=== PATIENT | female | born 1980 | race Hispanic/Latino ===

== ENCOUNTER 2020-01-25 21:10 | Emergency (ER) | payer BC ==
[~2020-01-25] VITALS: Ht 162.6 cm; Wt 63.5 kg
--- OUTSIDE RECORDS SUMMARY | 2020-01-25 21:12 | XMS REPORT ---
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 Problem Name Problem Code Onset Date Status Entry Date Provider Comment Standard Description Annotate Irregular menses 626.4 Active Sammy Dodge MD Irregular menstrual cycle Malaise & fatigue 780.79 Active Sammy Dodge MD Other malaise and fatigue Vaginal dryness 625.8 Active Sammy Dodge MD Other specified symptoms associated with female genital organs Weight gain 783.1 Active Sammy Dodge MD Abnormal weight gain IUD insertion V25.11 Active Sammy Dodge MD Encounter for insertion of intrauterine contraceptive device Cervix, screening for malignant neoplasm V76.2 Active Sammy Dodge MD Screening for malignant neoplasms of the cervix Contraceptive management V25.09 Active Sammy garza MD Encounter for other general counseling and advice on contraceptive management 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 V72.3 Active Sammy Dodge MD Special investigations and examinations - Gynecological examination Medication List Medication Instructions Start Date Stop Date Generic Name NDC Status Provider Patient Instruction SPRINTEC 28 0.25-35 MG-MCG ORAL TABLET 1 pill daily po SPRINTEC 28 0.25-35 MG-MCG ORAL TABLET 312642 NORGESTIMATE-ETH ESTR ADIOL Inactive SPRINTEC 28 0.25-35 MG-MCG ORAL TABLET 1 pill daily po NORGESTIMATE-ETH ESTRADIOL [id number] No Longer Active Sammy Dodge MD Active Vital Signs Date Name Value Unit Range Description blood pressure, diastolic 82 mm[Hg] BP cosby blood pressure, systolic 129 mm[Hg] BP sys height E&M 63 [in_us] Bdy height pulse rate E&M 93 /min Heart rate respiratory rate E&M 16 /min Resp rate temperature E&M 98.6 [degF] Body temp erature weight E&M 151.20 [lb_av] Weight Measure d blood pressure, diastolic 85 mm[Hg] BP cosby blood pressure, systolic 132 mm[Hg] BP sys height E&M 63 [in_us] Bdy height pulse rate E&M 75 /min Heart rate respiratory rate E&M 22 /min Resp rate temperature E&M 98.5 [degF] Body temp erature weight E&M 151 [lb_av] Weight Measure d Diagnostic Results Date Name Value Unit Range Description Lab Report: CBC With Differential/Platel et, Estradiol, TSH Rfx on Abnorm ... - Hematology hematocrit, blood 38.3 % 34.0-46.6 Lab Report: CBC With Differential/Platel et, Estradiol, TSH Rfx on Abnorm ... - Chemistry Absolute Neutrophils 3.5 X10E3/UL 10*3/uL 1.4-7.0 estradiol, serum 54.6 pg/mL thyroid stimulating hormone, serum 1.300 u[iU]/mL 0 .450-4.500 Lab Report: CBC With Differential/Platel et, Estradiol, TSH Rfx on Abnorm ... - Hematology lymphocytes as percent of blood leukocytes 26 % Not Estab. neutrophils as percent of blood leukocytes 67 % Not Estab. mean corpuscular volume, RBC 86 fL 79-97 basophils as percent of blood leukocytes 0 % Not Estab. basophil count, absolute 0.0 x10E3/uL 0.0-0.2 monocytes as percent of blood leukocytes 6 % Not Estab. Office Visit: Procedures mirena inserti on Rm 5 - Chemistry beta HCG, urine, semiquantitative negative Lab Report: CBC With Differential/Platel et, Estradiol, TSH Rfx on Abnorm ... - Hematology Eosinophil Absolute Count 0.1 X10E3/UL 10*3/uL 0.0-0.4 eosinophils as percent of blood leukocytes 1 % Not Estab. mean corpuscular hemoglobin, RBC 30.0 pg 26. 6-33.0 red blood cell distribution width 13.1 % 12 .3-15.4 mean corpuscular hemoglobin concentration, RBC 34.7 G/DL % 31.5-35.7 leukocyte count, blood 5.2 X10E3/UL 10*3/mm3 3.4-10.8 erythrocyte (RBC) count 4.44 X10E6/UL 10*6/mm3 3.77-5.28 monocyte count, blood, automated 0.3 X10E3/UL 10*3/uL 0 .1-0.9 Lab Report: CBC With Differential/Platel et, Estradiol, TSH Rfx on Abnorm ... - Chemistry immature granulocytes, percentage of total cells, bloo d 0 % Not Estab. Lab Report: CBC With Differential/Platel et, Estradiol, TSH Rfx on Abnorm ... - Hematology platelet count 216 X10E3/UL 10*3/mm3 753-257 5840/05/21 hemoglobin, blood 13.3 g/dL 11.1-15.9 lymphocyte count, blood, automated 1.3 X10E3/UL 10*3/mm3 0.7-3.1 Encounters Date Encounter Provider Code Facility 09:25:39 CDT Est Patient Exp Problem - 39172 Sammy noble MD CPT-24226 [facility] Procedures Code Procedure Name Date Entry Date Standard Desc ription CPT-38834 Est Patient Well Exam (18 - 39 Yrs) - [id number] 2018 08:53:02 CDT CPT-54122 Insertion of intrauterine device (IUD) 1 10:34:56 CDT CPT-J7298 Levonorgestrel-releasing int rauterine contraceptive system (Mirena), 52 mg 10:34:56 CDT CPT-61655 Urinalysis - - In House 11:07:32 VAULT PERSON CPT-17463 New Patient Well Exam (18 - 39 Yrs) - [id number] 2017 11:07:28 VAULT PERSON
--- NOTE | 2020-01-25 21:53 | Emergency Department Note ---
History of Present Illnes History of Present Illness Chief Complaint: Back Pain History of Present Illness This is a 39 year old female PRESENTS TO THE ER C/O SUPRAPUBIC ABD PAIN AND LOWER BACK PAIN ONSET YESTERDAY; PT STATES SHE WAS AT HER PCP ON TUESDAY AND PRESCRIBED BACTRIM AND DICLOFENAC AND TOLD TO GO TO THE ER IF SYMPTOMS WORSENED; PT STATES SHE HAD BURNING WITH URINATION BUT HAS RESOLVED; PT DENIES FEVER/CHILLS, N/V/D;. Historian: Patient Arrival Mode: Car Onset (how long ago): day(s) Location: LOWER ABD AND BACK Quality: PAIN Radiation: non-radiation Severity: mild Onset quality: gradual Duration (how long): day(s) (1) Timing of current episode: constant Progression: unchanged Chronicity: recurrent Context: recent illness (UTI) Relieving factors: none Exacerbating factors: none Associated symptoms: denies other symptoms Past Medical/Family History Physician Review I have reviewed the patient's past medical and family history. Any updates have been documented here. Past Medical History Recent Fever: No Clinical Suspicion of Infectio: No New/Unexplained Change in Ment: No Past Medical History: None Other Surgery: IUD Social History Smoking Cessation: Never Smoker Alcohol Use: None Any Illegal Drug Use: No TB Exposure/Symptoms: No Physically hurt or threatened: No Family History Family history of heart diseas: Yes Other Last Tetanus: UNK Any Pre-Existing Lines (PICC,: No Is patient up to date on immun: Yes Last Flu: UTD Last Pneumovax: UNK Review of Systems Review of Systems Constitutional: no symptoms EENTM: no symptoms Cardiovascular: no symptoms Respiratory: no symptoms Gastrointestinal: as per HPI Genitourinary: as per HPI Musculoskeletal: as per HPI Neurological: no symptoms Psychological: no symptoms Endocrine: no symptoms Hematological/Lymphatic: no symptoms Review of other systems All other systems reviewed and negative. Physical Exam Related Data Allergies: Coded Allergies: No Known Allergies (Unverified , 01/25/20) Triage Vital Signs Vital Signs Date Time Temp Pulse Resp B/P (MAP) Pulse Ox O2 Delivery O2 Flow Rate FiO2 01/25/20 21:31 100.2 88 16 143/92 97 Vital signs reviewed: Yes Physical Exam CONSTITUTIONAL Constitutional: well-developed, well-nourished HENT HENT: normocephalic, atraumatic, oropharynx clear/moist, nose normal HENT L/R: left ext ear normal, right ext ear normal EYES Eyes: PERRL, conjunctivae normal NECK Neck: ROM normal PULMONARY Pulmonary: effort normal, breath sounds normal CARDIOVASCULAR Cardiovascular: regular rhythm, heart sounds normal, capillary refill normal, normal rate GASTROINTESTINAL Abdominal: soft, bowel sounds normal, tender (MILD SUPRAPUBIC, NO CVA TENDERNESS) GENITOURINARY Genitourinary: exam deferred SKIN Skin: warm, dry MUSCULOSKELETAL Musculoskeletal: ROM normal NEUROLOGICAL Neurological: alert, oriented x 3, no gross motor or sensory deficits PSYCHOLOGICAL Psychological: mood/affect normal, judgement normal Results Laboratory Laboratory Laboratory Tests Test 01/25/20 21:40 Urine Color Yellow (YELLOW) Urine Clarity Sl cloudy (CLEAR) Urine pH 7 (5 - 7) Urine Specific [place] 1.020 (1.010-1.025) Urine Protein Negative (NEGATIVE) Urine Glucose (UA) Negative (NEGATIVE) Urine Ketones Negative (NEGATIVE) Urine Blood Small (NEGATIVE) Urine Nitrite Negative (NEGATIVE) Urine Bilirubin Negative (NEGATIVE) Urine Urobilinogen 0.2 mg/dL (0.2 - 1) Urine Leukocyte Esterase Trace (NEGATIVE) Urine RBC 6-10 /HPF (0-5) Urine WBC 6-10 /HPF (0-5) Urine Epithelial Cells Moderate /LPF (NONE) Urine Bacteria Moderate /HPF (NONE) Urine Test Negative (NEGATIVE) Lab results reviewed: Yes Critical Care Time Subsequent provider I assumed direction of critical care for this patient from another provider of my specialty. Assessment & Plan Assessment & Plan Final Impression: (1) UTI (urinary tract infection) Assessment & Plan Patient presents with complaint of lower abdomen pain and back pain. States was diagnosed with a UTI on Tuesday by PCP started on Bactrim symptoms got better but then yesterday symptoms returned. Lisinopril that has not returned is the burning with urination but does have the suprapubic pain and low back pain UA ordered to eval for UTI. Patient still with evidence of UTI despite being on Bactrim DS. I spoke with patient will do 1 g of Rocephin IM. We'll discharge patient home with Omnicef. Condition instructed to stop taking Bactrim DS. Depart Disposition: HOME, SELF-CARE Last Vital Signs Date Time Temp Pulse Resp B/P (MAP) Pulse Ox O2 Delivery O2 Flow Rate FiO2 6/5/20 21:31 100.2 88 16 143/92 97 RORY BOSE MD Jan 25, 2020 21:53
[2020-01-25 22:05] LABS: BILIRUBIN,URINE NEGATIVE (NEGATIVE); CLARITY,URINE SL CLOUDY (CLEAR); COLOR,URINE YELLOW (YELLOW); KETONES,URINE NEGATIVE (NEGATIVE); LEUKOCYTE ESTERASE ,URINE TRACE (NEGATIVE); NITRITE,URINE NEGATIVE (NEGATIVE); PREGNANCY TEST, URINE NEGATIVE (NEGATIVE); PROTEIN,URINE DIPSTICK NEGATIVE (NEGATIVE); URINE UROBILINOGEN 0.2 mg/dL (0.2 - 1)
[2020-01-25 22:16] LABS: BACTERIA,URINE MODERATE /HPF
[2020-01-25 22:17] LABS: EPITHELIAL CELLS,URINE MODERATE /LPF
[2020-01-25 23:03] VITALS: BP 136/86
[2020-01-25] MEDS ORDERED: KETOROLAC TROMETHAMINE 60 MG/2 ML VIAL IM ONE (23:15)
[2020-01-25] MEDS ORDERED: CEFTRIAXONE SOD 1 GM VIAL IM ONE (23:15)
== END 2020-01-26 00:25 | disposition home or self-care (01) ==
LOC: ER 21:10
DX: R10.30 Lower abdominal pain, unspecified (principal); M54.5 Low back pain; N39.0 Urinary tract infection, site not specified
CPT/HCPCS: 81001; 81025; 99283; J0696; J1885

== ENCOUNTER 2025-04-07 09:16 | Emergency (ER) | payer BC ==
[~2025-04-07] VITALS: Ht 162.6 cm; Wt 63.5 kg
[2025-04-07] MEDS: SODIUM CHLORIDE 0.9% 1000ML 1,000 ML IV STA (09:54)
[2025-04-07 09:59] LABS: BASOPHILS % 0.3 % (0.0-1.0); EOSINOPHILS % 0.1 % (0.0-6.0); LYMPHOCYTES % 15.4 % (18.0-39.1); MONOCYTES % 3.6 % (4.4-11.3); NEUTROPHILS % 78.8 % (38.7-80.0); RED CELL DISTRIBUTION WIDTH 14.0 % (11.7-14.4)
[2025-04-07 10:06] VITALS: TEMP 98.3
[2025-04-07 10:11] LABS: INR 0.89
[2025-04-07 10:12] LABS: EST GLOMERULAR FILTRATION RATE 105.0 ML/MIN (>=60)
[2025-04-07 10:45] LABS: CORONAVIRUS COVID-19 AG NEGATIVE (NEGATIVE)
[2025-04-07 10:59] LABS: LEUKOCYTE ESTERASE ,URINE NEGATIVE (NEGATIVE); PROTEIN,URINE DIPSTICK 1+ (NEGATIVE); URINE UROBILINOGEN 1 mg/dL (0.2 - 1)
[2025-04-07 11:01] LABS: EPITHELIAL CELLS,URINE FEW /LPF; WBC,URINE (MAN) 0-5 /HPF (0-5)
[2025-04-07 11:43] VITALS: PULSE 95; RESP 18; O2SAT 100
[2025-04-07] MEDS: MECLIZINE HCL 12.5 MG TAB PO ONE (11:47)
== END 2025-04-07 12:01 | disposition home or self-care (01) ==
LOC: ER 09:27
DX: R51.9 Headache, unspecified (principal); B34.9 Viral infection, unspecified; R74.8 Abnormal levels of other serum enzymes; R53.81 Other malaise; Z11.52 Encounter for screening for COVID-19
CPT/HCPCS: 36415; 71045; 80053; 81001; 85025; 85610; 85730; 87428; 99284; J7030; J8597